=== PATIENT | female | born 1955 | race Caucasian/White ===

== ENCOUNTER 2022-10-03 06:48 | Day surgery (SDC) | payer BC ==
[~2022-10-03] VITALS: Ht 170.2 cm; Wt 67.1 kg
[2022-10-03] MEDS ORDERED: EUTHYROX50 MCG (07:10)
== END 2022-10-03 08:45 | disposition home or self-care (01) ==
LOC: ORSCSDS 06:48
PROVIDERS: Surgery
PROC: 0DJD8ZZ Inspection of Lower Intestinal Tract, Via Natural or Artificial Opening Endoscopic (ICD-10-PCS; principal; 2022-10-03 08:00)
DX: Z12.11 Encounter for screening for malignant neoplasm of colon (principal); F32.A Depression, unspecified; E03.9 Hypothyroidism, unspecified; Z79.899 Other long term (current) drug therapy
CPT/HCPCS: J2704; J7120